=== PATIENT | male | born 1950 | race Caucasian/White ===

== ENCOUNTER 2019-09-06 09:14 | Inpatient (IN) | payer OTHER, MEDICARE ==
[~2019-09-06] VITALS: Ht 182.9 cm; Wt 100.0 kg
[~2019-09-06 09:14] MED LIST: AMLO5TAB4 PO; ASPI-1265 PO; ATOR20TA66 PO; HYDR-4353 PO; LOSA25TA41 PO; METO25TA6 PO; TICA90TA PO
[2019-09-06 09:38] LABS: BASOPHILS # (AUTO) 0.1 X10'3 (0-0.2); BASOPHILS % (AUTO) 0.9 % (0-1); EOSINOPHILS # (AUTO) 0.1 X10'3 (0-0.9); EOSINOPHILS % (AUTO) 1.1 % (0-6); HEMATOCRIT 46.8 % (42.0-52.0); HEMOGLOBIN 15.8 g/dl (14.0-17.9); LYMPHOCYTES % (AUTO) 31.4 % (21-51); MEAN CORPUSCULAR HEMOGLOBIN 32.4 PG (27.0-31.0); MEAN CORPUSCULAR HGB CONC 33.7 g/dL (33.0-36.5); MEAN CORPUSCULAR VOLUME 96.1 FL (78-98); MEAN PLATELET VOLUME 8.4 FL (7.4-10.4); MONOCYTES # (AUTO) 0.7 X10'3 (0-0.9); MONOCYTES % (AUTO) 10.5 % (2-12); NEUTROPHILS # (AUTO) 3.6 X10'3 (1.8-7.7); NEUTROPHILS % (AUTO) 56.1 % (42-75); PLATELET COUNT 286 X10'3 (140-440); RED BLOOD COUNT 4.87 X10'6 (4.70-6.10); RED CELL DISTRIBUTION WIDTH 12.7 % (11.5-14.5); WHITE BLOOD COUNT 6.5 X10'3 (4.5-11.0)
[2019-09-06 09:52] LABS: ALANINE AMINOTRANSFERASE 47 U/L (12-78); ALBUMIN 4.1 G/DL (3.4-5.0); ALKALINE PHOSPHATASE 74 IU/L (46-116); ANION GAP 11 (8-16); ASPARTATE AMINO TRANSFERASE 35 U/L (10-37); BILIRUBIN,TOTAL 0.6 MG/DL (0.1-1.0); BLOOD UREA NITROGEN 20 MG/DL (7-18); BUN/CREATININE RATIO 19.2 (5.4-32.0); CALCIUM 9.1 MG/DL (8.5-10.1); CHLORIDE 103 MMOL/L (99-107); CREATININE 1.04 MG/DL (0.60-1.10); GLUCOSE 110 MG/DL (70-104); SODIUM 138 MMOL/L (135-145); TOTAL CARBON DIOXIDE 24.5 MMOL/L (24-32); TOTAL PROTEIN 8.2 G/DL (6.4-8.2); eGFR 71 ML/MIN
[2019-09-06] MEDS ORDERED: aspirin 81mg tab.chew PO ONE (10:00)
[2019-09-06] MEDS ORDERED: nitroGLYCERIN 1gm ointment UD TP ONE (10:00)
[2019-09-06] MEDS ORDERED: magnesium hydroxide 30ml (MOM) UD suspension PO PRN (10:35)
[2019-09-06] MEDS ORDERED: magnesium 4gm in 100ml NS 100 ML IV PRN (10:35)
[2019-09-06] MEDS ORDERED: HYDROcodone/acetaminophen 5mg/325mg tablet PO PRN (10:35)
[2019-09-06] MEDS ORDERED: ondansetron/PF 4mg/2ml inj IV PRN (10:35)
[2019-09-06] MEDS ORDERED: morphine 2 MG/ML inj. syringe IV PRN (10:35)
[2019-09-06] MEDS ORDERED: magnesium 2GM in 50ml NS 50 ML IV PRN (10:35)
[2019-09-06] MEDS ORDERED: mag hydrox/Alum hydrox/simeth 30ml oral suspension PO PRN (10:35)
[2019-09-06] MEDS ORDERED: potassium CL 10mEq/100ml bag 100 ML IV PRN ×2 (10:35)
[2019-09-06] MEDS ORDERED: acetaminophen 325mg tablet PO PRN ×2 (10:35)
[2019-09-06] MEDS ORDERED: potassium Cl 20 mEq SR tablet PO PRN ×2 (10:35)
[2019-09-06] MEDS ORDERED: magnesium Cl slow-release 64mg tablet PO PRN (10:35)
[2019-09-06] MEDS: pantoprazole 40mg Tablet.DR PO SCH (12:22)
[2019-09-06] MEDS: normal saline 1000ml 1,000 ML IV SCH ×2 (12:23→20:47)
[2019-09-06] MEDS ORDERED: ALBU8.5H8 IH (12:50)
[2019-09-06] MEDS ORDERED: LOSA50TA64 PO (12:50)
[2019-09-06] MEDS ORDERED: METO100T7 PO (12:50)
[2019-09-06] MEDS ORDERED: ATOR40TA PO (12:50)
--- NOTE | 2019-09-06 13:16 | NUR ---
Patient in room MED 315. I have received report from shabnam ramos rn and had the opportunity to ask questions and assume patient care.
[2019-09-06 13:30] VITALS: BP 123/70
--- NOTE | 2019-09-06 13:30 | NUR ---
received pt into room 315,oriented to surroundings,pt had brief episode of emesis,denied need for meds, pt states "just hungry",v/s stable, given light snack,with no further nausea
[2019-09-06 15:30] VITALS: BP 118/72
[2019-09-06 18:00] VITALS: BP 98/55
[2019-09-06] MEDS ORDERED: albuterol 2.5 MG/3 ML nebule NEB PRN (20:00)
[2019-09-06] MEDS: K and/or MAG REPLACEMENT MC SCH (20:00)
[2019-09-06] MEDS: heparin, porcine 5000 units/ml vial SQ SCH (20:25)
[2019-09-06] MEDS ORDERED: temazepam 15mg capsule PO PRN (21:00)
[2019-09-06] MEDS ORDERED: losartan 50mg tablet PO SCH (21:00)
[2019-09-06] MEDS: HYDROcodone/acetaminophen 10/325mg tab PO PRN (22:52)
[2019-09-07] VITALS (10 sets, daily range): BP systolic 93–165; BP diastolic 52–92
[2019-09-07] MEDS: normal saline 1000ml 1,000 ML IV SCH (05:40)
--- NOTE | 2019-09-07 05:50 | NUR ---
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
--- NOTE | 2019-09-07 06:29 | NUR ---
Problems reprioritized. Patient report given, questions answered & plan of care reviewed with SALVADOR Jaimes.
--- NOTE | 2019-09-07 06:37 | NUR ---
Patient in room MED 315. I have received report from gera erickson and had the opportunity to ask questions and assume patient care.
[2019-09-07] MEDS: pantoprazole 40mg Tablet.DR PO SCH (07:24)
[2019-09-07] MEDS: HYDROcodone/acetaminophen 10/325mg tab PO PRN ×2 (07:25→11:58)
[2019-09-07] MEDS ORDERED: atorvastatin 20mg tablet PO SCH (08:00)
[2019-09-07] MEDS: K and/or MAG REPLACEMENT MC SCH (08:00)
[2019-09-07] MEDS ORDERED: metoprolol succinate 25mg (24-HOUR) SR. Tablet PO SCH (08:00)
[2019-09-07 08:40] LABS: BASOPHILS # (AUTO) 0.1 X10'3 (0-0.2); BASOPHILS % (AUTO) 0.6 % (0-1); EOSINOPHILS % (AUTO) 0.4 % (0-6); HEMATOCRIT 39.8 % (42.0-52.0); HEMOGLOBIN 13.5 g/dl (14.0-17.9); LYMPHOCYTES # (AUTO) 1.7 X10'3 (1.1-4.8); LYMPHOCYTES % (AUTO) 19.9 % (21-51); MEAN CORPUSCULAR HEMOGLOBIN 32.7 PG (27.0-31.0); MEAN CORPUSCULAR HGB CONC 33.9 g/dL (33.0-36.5); MEAN CORPUSCULAR VOLUME 96.4 FL (78-98); MEAN PLATELET VOLUME 8.8 FL (7.4-10.4); MONOCYTES # (AUTO) 0.7 X10'3 (0-0.9); MONOCYTES % (AUTO) 7.9 % (2-12); NEUTROPHILS # (AUTO) 6.2 X10'3 (1.8-7.7); NEUTROPHILS % (AUTO) 71.2 % (42-75); PLATELET COUNT 248 X10'3 (140-440); RED BLOOD COUNT 4.12 X10'6 (4.70-6.10); RED CELL DISTRIBUTION WIDTH 12.7 % (11.5-14.5); WHITE BLOOD COUNT 8.8 X10'3 (4.5-11.0)
[2019-09-07 08:57] LABS: ALANINE AMINOTRANSFERASE 42 U/L (12-78); ALBUMIN 3.6 G/DL (3.4-5.0); ALBUMIN/GLOBULIN RATIO 1.1 (1.1-1.5); ALKALINE PHOSPHATASE 64 IU/L (46-116); ANION GAP 6 (8-16); ASPARTATE AMINO TRANSFERASE 25 U/L (10-37); BILIRUBIN,TOTAL 0.7 MG/DL (0.1-1.0); BLOOD UREA NITROGEN 17 MG/DL (7-18); BUN/CREATININE RATIO 17.3 (5.4-32.0); CALCIUM 8.6 MG/DL (8.5-10.1); CHLORIDE 108 MMOL/L (99-107); CREATININE 0.98 MG/DL (0.60-1.10); GLUCOSE 102 MG/DL (70-104); POTASSIUM 4.2 MMOL/L (3.5-5.1); SODIUM 140 MMOL/L (135-145); TOTAL CARBON DIOXIDE 26.4 MMOL/L (24-32); eGFR 76 ML/MIN
[2019-09-07] MEDS: heparin, porcine 5000 units/ml vial SQ SCH (09:17)
--- NOTE | 2019-09-07 09:59 | NUR ---
PAGED DR. CABALLERO - NO RADHA ORDERED PAGER ID: [phone] MESSAGE: [phone] - NO RADHA SCAN ORDERED. WOULD YOU LIKE TO ORDER? THANKS ACCE [phone]
[2019-09-07] MEDS ORDERED: nitroGLYCERIN 0.4mg SUBLingual tab SL PRN (10:10)
[2019-09-07] MEDS ORDERED: regadenoson 0.4mg/5ml syringe IV ONE (10:10)
[2019-09-07] MEDS ORDERED: aminophylline 250mg/10ml inj. IV PRN (10:10)
[2019-09-07] MEDS ORDERED: metoprolol tartrate 1mg/ml inj IV PRN (10:10)
[2019-09-07] MEDS ORDERED: HCTZ25T PO (14:49)
[2019-09-07] MEDS ORDERED: PANT40TA4 PO (14:49)
--- NOTE | 2019-09-07 16:30 | NUR ---
pt dc'd via wheelchair with all belongings
--- NOTE | 2019-09-07 16:30 | NUR ---
reviewed all discharge instructions,including results of lexiscan.pt given prescription to take to [facility] ,info provided,pt aware of need for f/u appt with ,hugo solomon'd from [facility] ,site clear
== END 2019-09-07 16:58 | disposition home or self-care (01) | DRG 313 ==
LOC: ER 09:15 → ED HOLD 10:31 → MED 3N 13:28
PROVIDERS: ADMIT Internal Medicine; ATTEND Internal Medicine
PROC: 4A02XM4 Measurement of Cardiac Total Activity, External Approach (ICD-10-PCS; principal; 2019-09-07)
PROC: 3E073KZ Introduction of Other Diagnostic Substance into Coronary Artery, Percutaneous Approach (ICD-10-PCS; 2019-09-07)
DX: R07.89 Other chest pain (principal); E78.00 Pure hypercholesterolemia, unspecified; E78.5 Hyperlipidemia, unspecified; F12.90 Cannabis use, unspecified, uncomplicated; G89.29 Other chronic pain; I10 Essential (primary) hypertension; I25.10 Atherosclerotic heart disease of native coronary artery without angina pectoris; Z96.641 Presence of right artificial hip joint; M19.90 Unspecified osteoarthritis, unspecified site; M54.9 Dorsalgia, unspecified; M79.606 Pain in leg, unspecified; J44.9 Chronic obstructive pulmonary disease, unspecified; Z87.891 Personal history of nicotine dependence; Z95.5 Presence of coronary angioplasty implant and graft; Z90.49 Acquired absence of other specified parts of digestive tract
CPT/HCPCS: 36415; 71045; 78452; 80053; 83735; 84484; 85025; 87081; 93005; 93017; 93306; 94760; 99285; A9500; G0378; J1644; J2785; J7030